=== PATIENT | female | born 1990 | race Caucasian/White ===

== ENCOUNTER 2018-04-17 14:18 | Emergency (ER) | payer MEDICAID ==
[2018-04-17] MEDS: SOD CHLORIDE 0.9% 1,000 ML IV (17:20)
[2018-04-17] MEDS: METOCLOPRAMIDE 10 MG INJ IV (17:20)
[2018-04-17] MEDS: DIPHENHYDRAMINE 50 MG INJ IV (17:20)
[2018-04-17 17:24] LABS: ADD MAN DIFF? NO
[2018-04-17 17:32] LABS: WHITE BLOOD COUNT 14.1 10^3/ul (4.8-10.8)
[2018-04-17 17:32] LABS: BASOPHIL # 0.1 10^3/ul (0.0-0.1); BASOPHILS % 0.4 % (0.0-2.0); EOSINOPHILS % 0.3 % (0.0-7.0); HEMATOCRIT 43.4 % (37.0-47.0); HEMOGLOBIN 14.6 g/dl (12.0-16.0); LYMPHOCYTES # 2.3 10^3/ul (0.8-2.9); LYMPHOCYTES % 16.1 % (15.0-51.0); MEAN CORPUSCULAR HEMOGLOBIN 29.3 pg (29.0-33.0); MEAN CORPUSCULAR HGB CONC 33.6 g/dl (32.0-37.0); MEAN PLATELET VOLUME 11.3 fl (7.4-10.4); MONOCYTE # 0.8 10^3/ul (0.3-0.9); MONOCYTES % 5.8 % (0.0-11.0); NEUTROPHIL # 10.8 10^3/ul (1.6-7.5); PLATELET COUNT 274 10^3/UL (140-415); RED BLOOD COUNT 4.99 10^6/ul (4.20-5.40)
[2018-04-17 17:36] LABS: ADD UMIC YES; UR ASCORBIC ACID 40 mg/dL (NEGATIVE); UR BACTERIA MODERATE /HPF (NONE SEEN); UR BILIRUBIN (Dip) NEGATIVE (NEGATIVE); UR BLOOD (Dip) NEGATIVE (NEGATIVE); UR CLARITY CLOUDY (CLEAR); UR COLOR AMBER (YELLOW); UR GLUCOSE (Dip) NEGATIVE (NEGATIVE); UR KETONES (Dip) 1+ mg/dL (NEGATIVE); UR LEUKOCYTE ESTERASE (Dip) NEGATIVE Leu/ul (NEGATIVE); UR MUCUS MANY /HPF (NONE SEEN); UR NITRITE (Dip) POSITIVE (NEGATIVE); UR RBC 0 /HPF (0-5); UR SPECIFIC GRAVITY (Dip) 1.024 (1.003-1.030); UR SQUAMOUS EPITHELIAL CELL FEW /HPF (FEW); UR TOTAL PROTEIN (Dip) 1+ mg/dl (NEGATIVE); UR UROBILINOGEN (Dip) 1+ mg/dL (NEGATIVE); UR WBC 21 /HPF (0-5)
[2018-04-17 17:48] LABS: LIPASE 67 U/L (23-300)
[2018-04-17 17:50] LABS: ALANINE AMINOTRANSFERASE 21 IU/L (13-69); ALBUMIN 4.6 g/dl (3.3-4.9); ALBUMIN/GLOBULIN RATIO 1.31; ALKALINE PHOSPHATASE 81 IU/L (42-121); ANION GAP 12 (5-13); ASPARTATE AMINO TRANSFERASE 23 IU/L (15-46); BILIRUBIN,INDIRECT 0.8 mg/dl (0-1.1); BILIRUBIN,TOTAL 0.8 mg/dl (0.2-1.3); BLOOD UREA NITROGEN 9 mg/dl (7-20); CALCIUM 9.8 mg/dl (8.4-10.2); CARBON DIOXIDE 26 mmol/L (21-31); CHLORIDE 102 mmol/L (97-110); CREATININE 0.47 mg/dl (0.44-1.00); GLUCOSE 82 mg/dl (70-220); POTASSIUM 4.2 mmol/L (3.5-5.1); SODIUM 140 mmol/L (135-144); TOTAL PROTEIN 8.1 g/dl (6.1-8.1)
[2018-04-17 17:52] LABS: Estimated GFR > 60 mL/min (>60)
[2018-04-17] MEDS: CEFTRIAXONE 1 GM/50 ML (PMX) 50 ML IVPB (18:47)
== END 2018-04-17 19:44 | disposition home or self-care (01) ==
LOC: FTE 14:18
DX: O21.9 Vomiting of pregnancy, unspecified (principal); R10.2 Pelvic and perineal pain; Z3A.01 Less than 8 weeks gestation of pregnancy
CPT/HCPCS: 36415; 76801; 76817; 80053; 81001; 83690; 84702; 85025; 86900; 86901; 96361; 96365; 96375; 99285-25

== ENCOUNTER 2018-12-10 06:35 | Inpatient (IN) | payer MEDICAID ==
[2018-12-10] MEDS: LACTATED RINGER'S 1,000 ML IV ×3 (08:29→21:25)
[2018-12-10] MEDS ORDERED: CARBOPROST 250 MCG INJ IM (08:30)
[2018-12-10] MEDS ORDERED: OXYTOCIN 30 UNITS/LR 500 ML IV (08:30)
[2018-12-10] MEDS ORDERED: METHYLERGONOVINE 0.2 MG INJ IM (08:30)
[2018-12-10] MEDS ORDERED: MISOPROSTOL 200 MCG TAB PR (08:30)
[2018-12-10 08:48] LABS: ADD MAN DIFF? NO; AMPHETAMINE/METHAMPHETAMINE Negative (NEGATIVE); BARBITURATES Negative (NEGATIVE); BENZODIAZEPINES Negative (NEGATIVE); CANNABINOIDS Negative (NEGATIVE); COCAINE Negative (NEGATIVE); OPIATES Negative (NEGATIVE)
[2018-12-10 08:51] LABS: BASOPHIL # 0.1 10^3/ul (0.0-0.1); BASOPHILS % 0.4 % (0.0-2.0); EOSINOPHILS # 0.1 10^3/ul (0.0-0.5); EOSINOPHILS % 0.9 % (0.0-7.0); HEMATOCRIT 39.9 % (37.0-47.0); HEMOGLOBIN 12.7 g/dl (12.0-16.0); LYMPHOCYTES # 1.9 10^3/ul (0.8-2.9); LYMPHOCYTES % 16.4 % (15.0-51.0); MEAN CORPUSCULAR HGB CONC 31.8 g/dl (32.0-37.0); MEAN CORPUSCULAR VOLUME 84.9 fl (82.0-101.0); MEAN PLATELET VOLUME 12.8 fl (7.4-10.4); MONOCYTE # 0.8 10^3/ul (0.3-0.9); MONOCYTES % 6.6 % (0.0-11.0); NEUTROPHIL # 8.6 10^3/ul (1.6-7.5); NEUTROPHILS % 75.2 % (39.0-77.0); PLATELET COUNT 188 10^3/UL (140-415); RED CELL DISTRIBUTION WIDTH 14.6 % (11.5-14.5)
[2018-12-10 08:51] LABS: WHITE BLOOD COUNT 11.4 10^3/ul (4.8-10.8)
[2018-12-10 09:11] LABS: INR 0.86; PARTIAL THROMBOPLASTIN TIME 26.3 Sec (23.0-35.0); PROTIME 11.8 Sec (11.9-14.9); PT RATIO 0.9
[2018-12-10] MEDS: BUTORPHANOL 2 MG INJ IV (19:46)
[2018-12-10] MEDS ORDERED: DEXTROSE 5%-LR 1,000 ML IV (21:00)
[2018-12-10] MEDS ORDERED: MINERAL OIL LIGHT 10 ML VIAL TOP (21:00)
[2018-12-10 21:06] LABS: RAPID PLASMA REAGIN NONREACTIVE (NR)
[2018-12-10 23:08] LABS: HEPATITIS B SURFACE ANTIGEN NEGATIVE (NEGATIVE)
[2018-12-11] MEDS: LIDOCAINE 1% (MPF) 30 ML INJ INJ (01:43)
[2018-12-11] MEDS: OXYTOCIN 30 UNITS/LR 500 ML IV ×4 (01:54→13:13)
[2018-12-11] MEDS: LACTATED RINGER'S 1,000 ML IV* ×2 (03:13→11:13)
[2018-12-11] MEDS ORDERED: HYDROCODONE/APAP (5/325) TAB PO (03:30)
[2018-12-11] MEDS ORDERED: OXYTOCIN 30 UNITS/LR 500 ML IV (03:30)
[2018-12-11] MEDS ORDERED: METHYLERGONOVINE 0.2 MG INJ IM (03:30)
[2018-12-11] MEDS ORDERED: MISOPROSTOL 200 MCG TAB PR (03:30)
[2018-12-11] MEDS ORDERED: CARBOPROST 250 MCG INJ IM (03:30)
[2018-12-11] MEDS: LANOLIN HPA 1 PKT TOP (06:03)
[2018-12-11] MEDS: BENZOCAINE 20% 56 ML SPRAY TOP (06:03)
[2018-12-11] MEDS: IBUPROFEN 600 MG TAB PO ×3 (06:03→17:36)
[2018-12-12] MEDS: IBUPROFEN 600 MG TAB PO ×4 (00:31→18:01)
[2018-12-12] MEDS: LACTATED RINGER'S 1,000 ML IV* ×2 (03:13→11:13)
[2018-12-12 09:00] LABS: ADD MAN DIFF? NO
[2018-12-12 09:03] LABS: WHITE BLOOD COUNT 15.5 10^3/ul (4.8-10.8)
[2018-12-12 09:03] LABS: BASOPHIL # 0.1 10^3/ul (0.0-0.1); BASOPHILS % 0.5 % (0.0-2.0); EOSINOPHILS # 0.1 10^3/ul (0.0-0.5); EOSINOPHILS % 0.8 % (0.0-7.0); HEMATOCRIT 34.2 % (37.0-47.0); HEMOGLOBIN 10.7 g/dl (12.0-16.0); LYMPHOCYTES # 2.9 10^3/ul (0.8-2.9); LYMPHOCYTES % 18.9 % (15.0-51.0); MEAN CORPUSCULAR HGB CONC 31.3 g/dl (32.0-37.0); MEAN CORPUSCULAR VOLUME 86.4 fl (82.0-101.0); MONOCYTE # 1.1 10^3/ul (0.3-0.9); MONOCYTES % 6.8 % (0.0-11.0); NEUTROPHIL # 11.3 10^3/ul (1.6-7.5); NEUTROPHILS % 72.5 % (39.0-77.0); PLATELET COUNT 182 10^3/UL (140-415); RED BLOOD COUNT 3.96 10^6/ul (4.20-5.40); RED CELL DISTRIBUTION WIDTH 14.9 % (11.5-14.5)
[2018-12-12] MEDS: BENZOCAINE 20% 56 ML SPRAY TOP (16:12)
[2018-12-12] MEDS: WITCH HAZEL/GLYCERIN PAD PR (16:13)
[2018-12-12] MEDS: LANOLIN HPA 1 PKT TOP (16:13)
== END 2018-12-12 19:10 | disposition home or self-care (01) | DRG 807 ==
LOC: OBT 06:35 → PP1 12-11 03:31 → L-D 06:35 → OBT 07:14 → L-D 07:14
PROC: 10E0XZZ Delivery of Products of Conception, External Approach (ICD-10-PCS; principal; 2018-12-11)
DX: O48.0 Post-term pregnancy (principal); Z37.0 Single live birth; Z3A.40 40 weeks gestation of pregnancy
CPT/HCPCS: 76815; 80307; 85025; 85610; 85730; 86592; 86850; 86900; 86901; 87340; 99464